=== PATIENT | male | born 1975 | race Caucasian/White ===

== ENCOUNTER 2017-02-07 16:05 | Emergency (ER) | payer OTHER ==
[~2017-02-07] VITALS: Ht 180.3 cm; Wt 127.2 kg
[2017-02-07 16:14] VITALS: BP 126/73; PULSE 66; RESP 18; TEMP 98.6; O2SAT 96
[2017-02-07] MEDS ORDERED: SODIUM CHLOR 0.9% 1000 ML INJ 1,000 ML IV SCH (16:29)
[2017-02-07 16:30] VITALS: RESP 16; O2SAT 96
[2017-02-07] MEDS ORDERED: ONDANSETRON HCL 4 MG/2 ML VIAL IVP ONE (16:30)
[2017-02-07] MEDS ORDERED: MORPHINE SULFATE 4 MG/ML INJ IV PUSH ONE (16:30)
[2017-02-07] MEDS ORDERED: SODIUM CHLORIDE 0.9% FLUSH 10 ML FLUSH IV FLUSH PRN (16:30)
[2017-02-07 16:42] LABS: AUTOMATED NEUTROPHIL # 3.4 TH/MM3 (1.8-7.7); BASOPHIL % 0.4 % (0.0-2.0); EOSINOPHIL # 0.2 TH/MM3 (0-0.4); EOSINOPHIL % 2.5 % (0.0-4.0); HEMATOCRIT 41.3 % (39.0-51.0); LYMPH % 28.9 % (9.0-44.0); LYMPHOCYTE # 1.7 TH/MM3 (1.0-4.8); MEAN CELL VOLUME 92.1 FL (80.0-100.0); MEAN CORPUSCULAR HEMOGLOBIN 31.3 PG (27.0-34.0); MEAN CORPUSCULAR HGB CONC 33.9 % (32.0-36.0); MEAN PLATELET VOLUME 9.4 FL (7.0-11.0); MONO % 11.3 % (0.0-8.0); MONOCYTE # 0.7 TH/MM3 (0-0.9); NEUT % 56.9 % (16.0-70.0); PLATELET COUNT 195 TH/MM3 (150-450); RED BLOOD COUNT 4.48 MIL/MM3 (4.50-5.90); RED CELL DISTRIBUTION WIDTH 13.7 % (11.6-17.2)
[2017-02-07 16:51] LABS: CHLORIDE 104 MEQ/L (98-107); SODIUM (NA) 140 MEQ/L (136-145)
[2017-02-07] MEDS ORDERED: ZOLO100T PO (16:51)
[2017-02-07] MEDS ORDERED: PRAZ2CAP PO (16:51)
[2017-02-07] MEDS ORDERED: APIX5TAB PO (16:51)
[2017-02-07] MEDS ORDERED: BUPR300T PO (16:51)
[2017-02-07] MEDS ORDERED: RISP4TAB2 PO (16:51)
[2017-02-07] MEDS ORDERED: BUSP15TA PO (16:51)
[2017-02-07 16:54] LABS: CALCIUM 8.4 MG/DL (8.5-10.1)
[2017-02-07 16:55] LABS: ALBUMIN 3.1 GM/DL (3.4-5.0); BICARBONATE 29.6 MEQ/L (21.0-32.0); BLOOD UREA NITROGEN 14 MG/DL (7-18); GLUCOSE,RANDOM 94 MG/DL (74-106); LIPASE 264 U/L (73-393)
[2017-02-07 16:58] LABS: ALT (GPT) 817 U/L (12-78); AST (GOT) 319 U/L (15-37); GLOMERULAR FILTRATION RATE 74 ML/MIN (>89)
--- NOTE | 2017-02-07 16:58 | PD ---
HPI Chief Complaint: Chest Pain Time Seen by Provider: 16:29 Travel History International Travel<30 days: No Contact w/Intl Traveler<30days: No Traveled to known affect area: No History of Present Illness HPI The patient is a 41-year-old Wendy male who presents emergency department for shortness of breath, nausea, vomiting, diarrhea, and intermittent abdominal cramping. The patient is a 3 day history of symptoms which include nausea, vomiting, and loose, watery, and nonbloody diarrhea. The patient also complains of intermittent lower abdominal cramping associated with the diarrhea that is currently resolved. He does complain of mild nausea when eating. He denies any exposure to sick contacts and denies any recent international travel. He does complain of subjective fevers and chills. He also complains of mild shortness of breath with a dry nonproductive cough. He denies any chest pain. The patient denies any dysuria, frequency, or urgency. He denies any diffuse myalgias or arthralgias. Symptoms are moderate without any alleviating or exacerbating factors. PFSH Past Medical History Deep Vein Thrombosis: Yes (AND PE) Psychiatric: Yes (PTSD) Immunizations Current: Yes Influenza Vaccination: No ?: Not Past Surgical History Abdominal Surgery: Yes (HIATAL HERNIA REPAIR) Tonsillectomy: Yes Other Surgery: Yes Social History Alcohol Use: Yes (OCC) Tobacco Use: No (FORMER) Substance Use: No Allergies-Medications (Allergen,Severity, Reaction): Uncoded Allergies: UNKNOWN ABX (Allergy, Intermediate, RASH, 02/07/17) Reported Meds & Prescriptions Reported Meds & Active Scripts Active Reported Eliquis (Apixaban) 5 Mg Tab 5 Mg PO BID Zoloft (Sertraline HCl) 100 Mg Tab 100 Mg PO DAILY Buspirone (Buspirone HCl) 15 Mg Tab 30 Mg PO BID Bupropion HCl ER 24 HR (Bupropion HCl) 300 Mg Tab 300 Mg PO DAILY Risperidone 4 Mg Tab 4 Mg PO HS Prazosin (Prazosin HCl) 2 Mg Cap 4 Mg PO BIDHS Review of Systems Except as stated in HPI: all other systems reviewed are Neg General / Constitutional: No: Fever HENT: No: Lightheadedness Cardiovascular: No: Chest Pain or Discomfort Respiratory: Positive: Cough, Shortness of Breath Gastrointestinal: Positive: Nausea, Vomiting, Diarrhea, Abdominal Pain Genitourinary: No: Dysuria Musculoskeletal: No: Myalgias, Arthralgias Skin: No Rash Physical Exam Narrative GENERAL: Awake, alert, pleasant 41-year-old male who appears his stated age and is in no acute respiratory distress. SKIN: Focused skin assessment warm/dry. Multiple tattoos noted. HEAD: Atraumatic. Normocephalic. EYES: Pupils equal and round. No scleral icterus. No injection or drainage. ENT: No nasal bleeding or discharge. Mild erythema posterior pharynx but no exudate noted. NECK: Trachea midline. No JVD. CARDIOVASCULAR: Regular rate and rhythm. No murmur appreciated. Heart rate in the 60s. RESPIRATORY: No accessory muscle use. Clear to auscultation. Breath sounds equal bilaterally. No rebound tenderness. Abdomen: Soft, nontender, nondistended. No rebound tenderness, guarding, or rigidity. MUSCULOSKELETAL: No obvious deformities. No clubbing. No cyanosis. No edema. NEUROLOGICAL: Awake and alert. No obvious cranial nerve deficits. Motor grossly within normal limits. Normal speech. PSYCHIATRIC: Appropriate mood and affect; insight and judgment normal. Data Data Last Documented VS Vital Signs Date Time Temp Pulse Resp B/P (MAP) Pulse Ox O2 Delivery O2 Flow Rate FiO2 02/07/17 16:50 16 02/07/17 16:30 96 Room Air 02/07/17 16:30 59 02/07/17 16:14 98.6 126/73 (90) Orders Orders Complete Blood Count With Diff (02/07/17 16:29) Comprehensive Metabolic Panel (02/07/17 16:29) Lipase (02/07/17 16:29) Urinalysis - C+S If Indicated (02/07/17 16:29) Iv Access Insert/Monitor (02/07/17 16:29) Ecg Monitoring (02/07/17 16:29) Oximetry (02/07/17 16:29) Morphine Inj (Morphine Inj) (02/07/17 16:30) Ondansetron Inj (Zofran Inj) (02/07/17 16:30) Sodium Chlor 0.9% 1000 Ml Inj (Ns 1000 M (02/07/17 16:29) Sodium Chloride 0.9% Flush (Ns Flush) (02/07/17 16:30) Chest, Single Ap (02/07/17 16:29) Creatine Kinase (Cpk) (02/07/17 16:29) Troponin I (02/07/17 16:29) Labs Laboratory Tests Test 02/07/17 16:34 02/07/17 17:15 White Blood Count 6.0 TH/MM3 Red Blood Count 4.48 MIL/MM3 Hemoglobin 14.0 GM/DL Hematocrit 41.3 % Mean Corpuscular Volume 92.1 FL Mean Corpuscular Hemoglobin 31.3 PG Mean Corpuscular Hemoglobin Concent 33.9 % Red Cell Distribution Width 13.7 % Platelet Count 195 TH/MM3 Mean Platelet Volume 9.4 FL Neutrophils (%) (Auto) 56.9 % Lymphocytes (%) (Auto) 28.9 % Monocytes (%) (Auto) 11.3 % Eosinophils (%) (Auto) 2.5 % Basophils (%) (Auto) 0.4 % Neutrophils # (Auto) 3.4 TH/MM3 Lymphocytes # (Auto) 1.7 TH/MM3 Monocytes # (Auto) 0.7 TH/MM3 Eosinophils # (Auto) 0.2 TH/MM3 Basophils # (Auto) 0.0 TH/MM3 CBC Comment DIFF FINAL Differential Comment Blood Urea Nitrogen 14 MG/DL Creatinine 1.10 MG/DL Random Glucose 94 MG/DL Total Protein 6.7 GM/DL Albumin 3.1 GM/DL Calcium Level 8.4 MG/DL Alkaline Phosphatase 122 U/L Aspartate Amino Transf (AST/SGOT) 319 U/L Alanine Aminotransferase (ALT/SGPT) 817 U/L Total Bilirubin 0.5 MG/DL Sodium Level 140 MEQ/L Potassium Level 3.9 MEQ/L Chloride Level 104 MEQ/L Carbon Dioxide Level 29.6 MEQ/L Anion Gap 6 MEQ/L Estimat Glomerular Filtration Rate 74 ML/MIN Total Creatine Kinase 62 U/L Troponin I LESS THAN 0.02 NG/ML Lipase 264 U/L Urine Collection Type VOIDED Urine Color YELLOW Urine Turbidity CLEAR Urine pH 7.0 Urine Specific [place] 1.018 Urine Protein NEG mg/dL Urine Glucose (UA) NEG mg/dL Urine Ketones NEG mg/dL Urine Occult Blood NEG Urine Nitrite NEG Urine Bilirubin NEG Urine Leukocyte Esterase NEG Urine WBC 0-2 /hpf Urine Squamous Epithelial Cells 0-2 /hpf Microscopic Urinalysis Comment CULT NOT INDICATED MDM Medical Decision Making Medical Screen Exam Complete: Yes Emergency Medical Condition: Yes Medical Record Reviewed: Yes Interpretation(s) Chest x-ray reveals the lungs are clear Last Impressions Chest X-Ray 02/07/17 1629 Signed Impressions: Service Date/Time: Tuesday, February 07, 2017 17:13 - CONCLUSION: The lungs are clear. Chandler Sanders MD Laboratory Tests Test 02/07/17 16:34 02/07/17 17:15 White Blood Count 6.0 TH/MM3 Red Blood Count 4.48 MIL/MM3 Hemoglobin 14.0 GM/DL Hematocrit 41.3 % Mean Corpuscular Volume 92.1 FL Mean Corpuscular Hemoglobin 31.3 PG Mean Corpuscular Hemoglobin Concent 33.9 % Red Cell Distribution Width 13.7 % Platelet Count 195 TH/MM3 Mean Platelet Volume 9.4 FL Neutrophils (%) (Auto) 56.9 % Lymphocytes (%) (Auto) 28.9 % Monocytes (%) (Auto) 11.3 % Eosinophils (%) (Auto) 2.5 % Basophils (%) (Auto) 0.4 % Neutrophils # (Auto) 3.4 TH/MM3 Lymphocytes # (Auto) 1.7 TH/MM3 Monocytes # (Auto) 0.7 TH/MM3 Eosinophils # (Auto) 0.2 TH/MM3 Basophils # (Auto) 0.0 TH/MM3 CBC Comment DIFF FINAL Differential Comment Blood Urea Nitrogen 14 MG/DL Creatinine 1.10 MG/DL Random Glucose 94 MG/DL Total Protein 6.7 GM/DL Albumin 3.1 GM/DL Calcium Level 8.4 MG/DL Alkaline Phosphatase 122 U/L Aspartate Amino Transf (AST/SGOT) 319 U/L Alanine Aminotransferase (ALT/SGPT) 817 U/L Total Bilirubin 0.5 MG/DL Sodium Level 140 MEQ/L Potassium Level 3.9 MEQ/L Chloride Level 104 MEQ/L Carbon Dioxide Level 29.6 MEQ/L Anion Gap 6 MEQ/L Estimat Glomerular Filtration Rate 74 ML/MIN Total Creatine Kinase 62 U/L Troponin I LESS THAN 0.02 NG/ML Lipase 264 U/L Urine Collection Type VOIDED Urine Color YELLOW Urine Turbidity CLEAR Urine pH 7.0 Urine Specific [place] 1.018 Urine Protein NEG mg/dL Urine Glucose (UA) NEG mg/dL Urine Ketones NEG mg/dL Urine Occult Blood NEG Urine Nitrite NEG Urine Bilirubin NEG Urine Leukocyte Esterase NEG Urine WBC 0-2 /hpf Urine Squamous Epithelial Cells 0-2 /hpf Microscopic Urinalysis Comment CULT NOT INDICATED Differential Diagnosis Differential diagnosis includes gastroenteritis, food poisoning, viral syndrome , influenza, pneumonia, dehydration, electrolyte abnormality. Narrative Course IV was established, labs are drawn and sent, and the patient was placed on cardiac telemetry monitoring and continuous pulse oximetry monitoring. Influenza screen was sent to lab's patients duration of symptoms been ongoing for 3 days. The patient was administered Zofran, morphine, and IV fluids. Chest x-ray was obtained to rule out lower lobe pneumonia. The patient's AST is elevated at 300s, ALT is elevated at 800s. I have no old advised to compare. The patient's bilirubin is unremarkable. The patient may have acute hepatitis secondary to viral syndrome versus hepatitis A from food poisoning. I had a discussion with the patient regarding his elevated liver function tests , he does have a history of alcohol abuse, but is no longer drinking alcohol. He denies any known history of hepatitis B or C. He denies the ingestion of any raw seafood. The patient's LFTs may be secondary to underlying viral syndrome with viral hepatitis, but he has no significant pain, icterus, jaundice , or hepatomegaly. Patient is advised to follow-up with the [facility] clinic for comparison of his labs and monitoring of his LFTs. The patient is comfortable with this plan of care and disposition. Diagnosis Primary Impression: Gastroenteritis Additional Impression: Elevated transaminase level Patient Instructions: General Instructions Additional Instructions: Medications as directed. Recheck LFTs in 6 weeks. Follow-up with her physician at the [facility]. Please provide the patient a copy of his labs at discharge. Return if symptoms worsen or progress. Med/Other Pt SpecificInfo: Prescription(s) given Scripts Hydrocodone-Acetaminophen ([place]) 5-325 mg Tab 1 TAB PO Q6H Y for PAIN, #12 TAB 0 Refills Prov: Cliff Guardado MD 02/07/17 Ondansetron Odt (Zofran Odt) 4 Mg Tab 4 MG SL Q6HR Y for Nausea/Vomiting, #10 TAB 0 Refills Prov: Cliff Guardado MD 02/07/17 Dicyclomine (Bentyl) 10 Mg Cap 10 MG PO QID for Bowel Management, #21 CAP 0 Refills Prov: Cliff Guardado MD 02/07/17 Disposition: 01 DISCHARGE HOME Condition: Stable Cliff Guardado MD Feb 07, 2017 16:58
[2017-02-07 16:59] LABS: TOTAL BILIRUBIN ADULT 0.5 MG/DL (0.2-1.0); TOTAL PROTEIN 6.7 GM/DL (6.4-8.2)
[2017-02-07 17:00] VITALS: BP 139/67; PULSE 58; RESP 16; O2SAT 96
[2017-02-07 17:00] LABS: ALKALINE PHOSPHATASE 122 U/L (45-117)
[2017-02-07 17:03] LABS: TROPONIN I LESS THAN 0.02 NG/ML (0.02-0.05)
[2017-02-07 17:32] LABS: BILIRUBIN, URINE NEG (NEG); BLOOD, URINE NEG (NEG); GLUCOSE,URINE NEG (NEG); KETONE, URINE NEG (NEG); NITRITE,URINE NEG (NEG); URINE LEUKOCYTE ESTERASE NEG (NEG)
--- NOTE | 2017-02-07 17:41 | RADRPT ---
EXAM DATE/TIME: 02/07/2017 17:13 [facility] COMPARISON: No previous studies available for comparison. INDICATIONS : Short of breath and chest pains for 3 days. MEDICAL HISTORY : Deep venous thrombosis. Pulmonary embolism. SURGICAL HISTORY : Hernia repair. ENCOUNTER: Initial ACUITY: 3 days PAIN SCORE: 4/10 LOCATION: Bilateral chest FINDINGS: A single view of the chest demonstrates the lungs to be symmetrically aerated without evidence of mas s, infiltrate or effusion. The cardiomediastinal contours are unremarkable. Osseous structures are intact. CONCLUSION: The lungs are clear. Chandler Sanders MD on February 07, 2017 at 17:39 Board Certified Radiologist. This report was verified electronically.
[2017-02-07 17:48] LABS: SQUAMOUS EPITHELIAL CELL URINE 0-2 /hpf (0-5); URINE COLOR YELLOW (YELLW/STRAW); WBC, URINE 0-2 /hpf (0-5)
[2017-02-07 18:00] VITALS: BP 144/80; PULSE 60; RESP 16; O2SAT 97
[2017-02-07] MEDS ORDERED: ZOFR4TAB3 SL (18:00)
[2017-02-07] MEDS ORDERED: DICY10 PO (18:00)
[2017-02-07] MEDS ORDERED: NORC5TAB PO (18:00)
--- NOTE | 2017-02-07 21:47 | EKG ---
Date Performed: 02/07/2017 Time Performed: 16:22:36 PTAGE: 41 years EKG: SINUS BRADYCARDIA BORDERLINE ECG NO PREVIOUS TRACING DOCTOR: Ariella Jimenez Interpretating Date/Time 02/07/2017 21:46:49
--- NOTE | 2017-02-07 21:47 | EKG ---
Date Performed: 02/07/2017 Time Performed: 16:22:36 PTAGE: 41 years EKG: SINUS BRADYCARDIA BORDERLINE ECG NO PREVIOUS TRACING DOCTOR: Ariella Jimenez Interpretating Date/Time 02/07/2017 21:46:49
--- NOTE | 2017-02-07 21:47 | EKG ---
Date Performed: 02/07/2017 Time Performed: 16:22:36 PTAGE: 41 years EKG: SINUS BRADYCARDIA BORDERLINE ECG NO PREVIOUS TRACING DOCTOR: Ariella Jimenez Interpretating Date/Time 02/07/2017 21:46:49
== END 2017-02-07 18:27 | disposition home or self-care (01) ==
LOC: PHED 16:05
DX: K52.9 Noninfective gastroenteritis and colitis, unspecified (principal); R74.0 Nonspecific elevation of levels of transaminase and lactic acid dehydrogenase [LDH]; R06.02 Shortness of breath
CPT/HCPCS: 71010; 80053; 81001; 82550; 83690; 84484; 85025; 93005; 96361; 96374; 96375; 99284; J2270; J2405; J7030